=== PATIENT | female | born 1965 | race Caucasian/White ===

== ENCOUNTER 2021-08-27 14:35 | Emergency (ER) | payer OTHER ==
[~2021-08-27] VITALS: Ht 177.8 cm; Wt 56.7 kg
[2021-08-27] MEDS ORDERED: PREDNISONE 20 M20 MG PO (18:07)
[2021-08-27 18:21] VITALS: BP 130/82
== END 2021-08-27 18:21 | disposition home or self-care (01) ==
LOC: ER 14:35
DX: E07.9 Disorder of thyroid, unspecified (principal); Z20.822 Contact with and (suspected) exposure to COVID-19; J40 Bronchitis, not specified as acute or chronic